=== PATIENT | female | born 1965 | race Caucasian/White ===

== ENCOUNTER 2018-04-12 18:33 | Emergency (ER) | payer BC ==
[2018-04-12 18:44] VITALS: BP 161/96
[2018-04-12] MEDS ORDERED: Ondansetron 4 MG Tab.DIS PO ONE (19:19)
[2018-04-12] MEDS ORDERED: HYDROmorphone 0.5 MG/0.5 ML SYRINGE IM ONE (19:19)
--- NOTE | 2018-04-12 20:07 | EDM.PDOC ---
ED HPI GENERAL MEDICAL PROBLEM - General Chief Complaint: Lower Extremity Injury/Pain Stated Complaint: [facility] Time Seen by Provider: 04/12/18 19:04 Source of Information: Reports: Patient History Limitations: Reports: No Limitations - History of Present Illness INITIAL COMMENTS - FREE TEXT/NARRATIVE: Patient is a 52-year-old female presents ED complaining of generalized left knee pain. Patient states she's been having off-and-on discomfort to the left knee for quite some time. Over Memorial Day she experienced an episode of the left knee locking up after taking a nap. Patient forced it to bend and has had minimal discomfort as of recent. This past Friday has had episodic pain to the left knee off and on worse with ambulation. Friday she felt great and attended her daughter's wedding. Today she was good up until approximately 1700 hrs. when she attempted to get out of the vehicle and walked approximately 30 feet when the knee locked up. She was unable to weight-bear. She complained of some spasms along the posterior aspect of her knee. She did not fall or experience any trauma to the affected knee. Pain currently is rated a 7 out of 10. At its worse it was rated 10 out of 10. There is no sensory/motor deficits distally. She has not taken any pain medications prior to arrival. She denies any surgery on the affected knee. She has a history of DVT or PE. Denies any chest pain, shows breath, increased swelling to lower extremity, redness, or any additional complaints. She is currently on no medications and denies any past medical history. Left Leg Pain Score (Numeric/FACES): 10 - Related Data Allergies Allergy/AdvReac Type Severity Reaction Status Date / Time No Known Allergies Allergy Verified 07/14/16 18:28 Home Meds: Home Meds . [No Known Home Meds] 04/12/18 [History] Cetirizine [ZyrTEC] 10 mg PO BEDTIME 04/12/18 [History] Past Medical History - Past Health History Medical/Surgical History: Denies Medical/Surgical History HEENT History: Reports: None Cardiovascular History: Reports: None MEDICAL REIMBURSEMENT SPECIALIST History: Reports: Dysfunctional Uterine Bleeding - Past Surgical History Cardiovascular Surgical History: Reports: None Social & Family History - Family History Family Medical History: Noncontributory - Tobacco Use Smoking Status *Q: Never Smoker - Caffeine Use Caffeine Use: Reports: Coffee, Soda - Recreational Drug Use Recreational Drug Use: No Review of Systems - Review of Systems Review Of Systems: ROS reveals no pertinent complaints other than HPI. ED EXAM, GENERAL - Physical Exam Exam: See Below Exam Limited By: No Limitations General Appearance: Alert, WD/WN, No Apparent Distress Ears: Hearing Grossly Normal Nose: Normal Inspection Throat/Mouth: Normal Voice, No Airway Compromise Neck: Normal Inspection, Supple Respiratory/Chest: No Respiratory Distress, Lungs Clear, Normal Breath Sounds, No Accessory Muscle Use Cardiovascular: Normal Peripheral Pulses, Regular Rate, Rhythm Peripheral Pulses: 3+: Popliteal (L), Popliteal (R), Posterior Tibial (L), Posterior Tibial (R) Extremities: Normal Inspection, No Pedal Edema, Normal Capillary Refill, Limited Range of Motion, Other (Increasing pain with palpation to the anterior/ lateral/medial/posterior knee. Limited range of motion both passive and also active. Limited testing secondary to pain. Patella is freely movable, midline, with no pain noted. No sensory/motor deficits distally. No pain noted to the femur and left hip. NO swelling, redness, or pain noted to the posterior calf of the affected leg. ) Neurological: Alert, Oriented, CN II-XII Intact, Normal Cognition, No Motor/ Sensory Deficits Psychiatric: Normal Affect, Normal Mood Skin Exam: Warm, Dry, Intact, Normal Color, No Rash Course - Vital Signs Last Recorded V/S: Last Vital Signs Temp 98.7 F 04/12/18 18:43 Pulse 89 04/12/18 18:43 Resp 20 04/12/18 18:43 BP 161/96 H 04/12/18 18:43 Pulse Ox 100 04/12/18 18:43 - Orders/Labs/Meds Orders: Active Orders 24 hr Category Date Time Status Communication Order [RC] ASDIRECTED Care 04/12/18 20:11 Active Knee Min 4V Lt [CR] Stat Exams 04/12/18 19:19 Taken Meds: Medications Discontinued Medications Generic Name Dose Route Start Last Admin Trade Name Freq PRN Reason Stop Dose Admin Hydromorphone HCl 0.5 mg 04/12/18 19:19 04/12/18 20:22 Dilaudid IM 04/12/18 19:20 0.5 mg ONETIME ONE Administration Ondansetron HCl 4 mg 04/12/18 19:19 04/12/18 20:22 Zofran Odt PO 04/12/18 19:20 4 mg ONETIME ONE Administration - Re-Assessments/Exams Free Text/Narrative Re-Assessment/Exam: X-ray of the left knee obtained after administration of Dilaudid 0.5 mg IM, and also Zofran 4 mg ODT. X-ray of the left knee revealed no acute bony abnormalities. Will have knee immobilizer placed. We'll see if patient can tolerate utilization of crutches. She may require a walker. Return precautions discussed with the patient. They had no additional questions concerns. Discharge instructions as documented. Departure - Departure Time of Disposition: 20:04 Disposition: Home, Self-Care 01 Condition: Good Clinical Impression: Strain of knee and leg, left Qualifiers: Encounter type: initial encounter Qualified Code(s): S86.912A - Strain of unspecified muscle(s) and tendon(s) at lower leg level, left leg, initial encounter - Discharge Information Instructions: Crutch Use, Adult, [id number], How to Use a Knee Immobilizer, [id number], Pain Medicine Instructions, [id number] Referrals: Cash Santillan PA-C [Primary Care Provider] - Ruddy Edwards MD [Physician] - Forms: ED Department Discharge Additional Instructions: You are to be nonweightbearing for the next 5-7 days. Toe-touch only for balance. Thereafter may increase weight as tolerated. Apply ice to the affected knee 3 times a day, 30 minutes in duration, do not apply directly on the skin. Take ibuprofen and Tylenol in alternating fashion for pain. May utilize [place] one tab every 6 hours for severe pain. Do not take [place] and Tylenol together. Do not drive this evening since receiving a sedative medication. Do not drive while taking the [place]. Refrain from any activities that cause worsening pain. Call and make an appt with Dr. Edwards to be evaluated in 7 to 10 days. Please return to the ED if you develop any new or worsening symptoms. - My Orders Last 24 Hours: My Active Orders 04/12/18 19:19 Knee Min 4V Lt [CR] Stat 04/12/18 20:11 Communication Order [RC] ASDIRECTED - Assessment/Plan Last 24 Hours: My Active Orders 04/12/18 19:19 Knee Min 4V Lt [CR] Stat 04/12/18 20:11 Communication Order [RC] ASDIRECTED
--- NOTE | 2018-04-13 07:43 | CR ---
Left knee: Four views of the left knee were obtained. Comparison: No prior knee exam. Medial joint is slightly narrowed. Lateral joint space is preserved. Lateral view is suboptimal in positioning. No acute fracture or other bony abnormality is seen. Impression: 1. Suboptimal lateral view. 2. Slight medial joint space narrowing. Diagnostic code #2
== END 2018-04-12 21:25 | disposition home or self-care (01) ==
LOC: SUPCPDRO 18:33 → JD.ED 18:33
DX: S86.912A Strain of unspecified muscle(s) and tendon(s) at lower leg level, left leg, initial encounter (principal); X58.XXXA Exposure to other specified factors, initial encounter
CPT/HCPCS: 73564; 96372; 99284; A9270; J1170

== ENCOUNTER 2021-11-27 14:02 | Day surgery (SDC) | payer BC ==
[~2021-11-27 14:02] MED LIST: Lactated Ringers 1,000 ML IV SCH; Lidocaine 1% with EPINEPHrine 1:100,000 20 ML MDV ONE; Lidocaine 1%/Sod Bicarbonate in NS 8.4% 1 ML Syringe IDERM PRN; Sodium Chloride 0.9% 10 ML Syringe FLUSH PRN; Sodium Chloride 0.9% 10 ML Syringe FLUSH SCH
[2021-11-27 16:09] VITALS: BP 118/57; PULSE 85
== END 2021-11-27 15:35 | disposition home or self-care (01) ==
LOC: JD.SDS 14:02
PROVIDERS: ATTEND Surgery
DX: D17.1 Benign lipomatous neoplasm of skin and subcutaneous tissue of trunk (principal); J45.909 Unspecified asthma, uncomplicated; I10 Essential (primary) hypertension; E55.9 Vitamin D deficiency, unspecified; Z79.899 Other long term (current) drug therapy